=== PATIENT | male | born 1985 | race Caucasian/White ===

== ENCOUNTER 2024-07-31 18:36 | Inpatient (IN) | payer OTHER, SELFPAY ==
[2024-07-31 18:39] VITALS: BMI 34.8
[2024-07-31 19:34] VITALS: BP 150/89; PULSE 107; RESP 20; TEMP 37.5; O2SAT 97
[2024-07-31 21:01] LABS: Lactate (Lactic Acid) 1.7 mMol/L (0.4-2.0)
[2024-07-31 21:03] LABS: Base Excess, Venous 6 (-3-3); O2 Saturation, Venous 33 % (96-97); PCO2, Venous 38 mmHg (36-56); PO2, Venous 19 mmHg (15-58); pH, Venous 7.49 (7.33-7.66)
[2024-07-31 21:05] LABS: Basophils % (Auto) 0 % (0-2.5); Eosinophils % (Auto) 0 % (0-10); Hematocrit 44.8 % (41.0-53.0); Hemoglobin 16.1 g/dL (13.5-16.0); Immature Granulocytes % (Auto) 0 % (0-0); Immature Granulocytes Auto 0.07 Thou/mm3 (0.00-0.00); Lymphocytes # (Auto) 0.8 Thou/mm3 (1.0-4.8); Lymphocytes % (Auto) 5 % (10-50); Mean Corpuscular HGB Conc 35.9 g/dl (31.0-37.0); Mean Corpuscular Hemoglobin 32.8 pg (25.0-35.0); Mean Corpuscular Volume 91 fL (80-100); Monocytes % (Auto) 6 % (0-12); Neutrophils # (Auto) 13.8 Thou/mm3 (1.8-7.7); Neutrophils % (Auto) 88 % (37-80); Nucleated Red Blood Cell % 0 /100 WBC (0); Platelet Count 271 Thou/mm3 (140-440); RDW Standard Deviation 39.6 fL (35.1-43.9); Red Blood Count 4.91 Miln/mm3 (4.50-5.90); White Blood Count 15.7 Thou/mm3 (3.8-10.6)
[2024-07-31 21:30] LABS: Alanine Aminotransferase 21 U/L (10-49); Albumin, Serum 4.7 gm/dL (3.5-5.0); Albumin/Globulin Ratio 1.4 (1.2-2.2); Alkaline Phosphatase 73 U/L (46-116); Anion Gap 10 (7-16); Aspartate Amino Transferase 17 U/L (0-34); BUN/Creatinine Ratio 11 Ratio (12-20); Bilirubin,Total 0.7 mg/dL (0.3-1.2); Blood Urea Nitrogen 12 mg/dL (9-23); Calcium 10.5 mg/dL (8.3-10.6); Calcium (Corrected) 10.5 mg/dL (8.5-10.1); Carbon Dioxide 27.4 mMol/L (20.0-31.0); Chloride 99 mMol/L (98-107); Creatine Kinase 118 U/L (34-171); Creatinine (Component) 1.1 mg/dL (0.6-1.3); Estimated Creatinine Clearance 114.3 mL/min (>60); Globulin 3.4 gm/dL (2.3-3.5); Glucose 117 mg/dL (74-106); Lipase 37 U/L (12-53); Osmolality,Calculated 272 (275-295); Potassium 4.6 mMol/L (3.4-5.1); Procalcitonin 0.31 ng/ml (0.0-0.49); Sodium 136 mMol/L (136-145); Total Protein 8.1 gm/dL (5.7-8.2); eGFR > 60 See Note
--- NOTE | 2024-07-31 21:32 | XR_ITS ---
Examination: CT abdomen with intravenous contrast CT pelvis with intravenous contrast 2-D coronal reconstructions 2-D sagittal reconstructions Date and time of exam:August 01, 2024 0044 hours INDICATIONS: Bilateral flank pain onset today. CTDI: vol (mGy) 10.5 DLP: (mGycm) 708 Technique: Multiple axial sections of the abdomen and pelvis have been obtained. 64 slice high-resolution scanner used. 3 mm axial sections have been obtained, post intravenous injection 60 cc Isovue 370 2-D sagittal, coronal reconstructions obtained. Low dose protocols were performed. One or more of the following dose reduction techniques were used; automated exposure control, adjustment of the mA and/or KV according to patient size, use of iterative reconstruction technique. Findings: No focal liver or splenic lesions No gallstones No pancreatic mass No renal or ureteral calculi, no hydronephrosis Aorta normal size Significant inflammatory change. Cecal and surrounding tubular structure medial to the cecum No pelvic abscess Urinary bladder is intact IMPRESSION: Findings most consistent with acute appendicitis with localized perforation No pelvic abscess
[2024-07-31 22:05] LABS: Collection Type, Urine Clean Catch
[2024-07-31 22:11] LABS: Bilirubin,Urine Negative (Negative); Blood,Urine Negative (Negative); Clarity,Urine Clear (Clear/Hazy); Color,Urine Yellow (Lt Yel-Yel); Glucose, Urine Negative (Negative); Ketones,Urine 4+ (Negative); Leukocyte Esterase,Urine Negative (Negative); Nitrite,Urine Negative (Negative); Protein,Urine 1+ (Neg - Trace); RBC,Urine 2 /hpf (0-3); Specific Gravity,Urine 1.027 (1.001-1.035); Squamous Epithelial Cell,Urine < 1 /hpf (0-5); Urobilinogen,Urine Negative mg/dL (0.0-1.0); WBC,Urine 1 /hpf (0-5)
[2024-07-31 22:19] LABS: Amphetamine/Methamp Scrn,U Negative (Negative); Barbiturate Screen,Urine Negative (Negative); Benzodiazepines Screen,Urine Negative (Negative); Benzoylecgonine Screen, Ur Negative (Negative); Fentanyl Screen,Urine Negative (Negative); Opiate Screen,Urine Negative (Negative); THC Screen,Urine Negative (Negative)
[2024-07-31] MEDS: ONDANSETRON INJ 2 MG/ML INJ 2 ML 4 MG IV ×2 (22:51→23:50)
[2024-07-31] MEDS: SODIUM CHLORIDE 0.9% 1000 ML 1,000 ML 999 ML IV (22:51)
[2024-07-31] MEDS: MORPHINE SULF INJ 10 MG/ML VIAL 5 MG IVP (22:52)
[2024-07-31] MEDS: DIAZEPAM INJ 5 MG/ML VIAL 2 ML 10 MG IVP (23:40)
[2024-08-01] VITALS (19 sets, daily range): BP systolic 87–140; BP diastolic 42–80; PULSE 65–120; RESP 16–22; TEMP 36.2–39.5; O2SAT 91–100; BMI 35.0
--- NOTE | 2024-08-01 02:14 | PRELIM_ITS ---
CT scan of the abdomen and pelvis with intravenous contrast (axial sections with sagittal and coronal reformats) August 01, 2024 at 0027 hours Clinical History: Abdomen pain. Comparison: No prior study is available for comparison. Findings: Bibasilar dependent atelectasis is present. The liver, gallbladder, pancreas, spleen, kidneys and adrenals are unremarkable. No evidence of bowel obstruction. The appendix is markedly thickened, fluid filled measuring 17 mm in maximum thickness with mural enhancement and marked adjacent fat stranding (axial image 152 - 169/325). There is deformed wall of the mid appendix with a few adjacent small air loculi on (coronal image 69/169, axial image 159/325). There is associated extensive periappendiceal fat stranding and inflammation of the contiguous cecal base and small bowel loops. There is also right pelvic peritoneal thickening with trace free fluid in the pelvis. There are subcentimeter mesenteric or retroperitoneal lymph nodes. The urinary bladder is unremarkable. The osseous structures are unremarkable. Impression: Findings are concerning for acute appendicitis with suspicious contained perforation and small air loculus, contiguous inflammation of the cecal base and a terminal ileum. Recommended clinical correlation. Discussion Details: Results verbally communicated to : Dr. Cedillo at 02:10 AM 08/01/2024 Report Electronically Signed By: Steve Ford 08/01/2024 2:13:43 AM [EST]
--- NOTE | 2024-08-01 02:15 | EDNOTE_ITS ---
ED Abdominal Pain RME/HPI General Chief Complaint: Abdominal Pain Stated complaint: ABD/BACK PAIN, FEVER SINCE LAST NIGHT Time seen by provider: 07/31/24 19:54 Arrival date/time: 07/31/24 18:36 38M with no significant PMH presents to ED with 2 days of lower back pain and fevers/chills. Patient states he recently went on the carnivore diet and has been taking 20k units of vitamin D for 10 days because he read somewhere that it would help his body lose calories. Patient states he hasn't been urinating as much as is worried about his kidneys. Limitations: no limitations Related Data Previous Rx's ?Medication ?Instructions ?Recorded hydrocodone 5 mg-acetaminophen 325 1 tab PO Q6H PRN pa in #10 tabs /16/18 mg tablet ([place]) Allergies Allergy/AdvReac Type Severity Reaction Status Date / Time No Known Allergies Allergy Verified 07/31/24 18:38 Review of Systems Review of Systems Systems Reviewed: All systems reviewed, normal except as documented Constitutional Constitutional: Reports system reviewed and no additional complaints, except as documented, Reports as per HPI, Reports chills, Reports fever(s) and Denies headache(s) ENT Ears, Nose, Mouth, and Throat: Denies disequilibrium and Denies headache(s) Cardiovascular Cardiovascular: Reports system reviewed and no additional complaints, except as documented, Denies chest pain and Denies dyspnea Respiratory Respiratory: Reports system reviewed and no additional complaints, except as documented, Denies cough and Denies dyspnea Gastrointestinal Gastrointestinal: Reports system reviewed and no additional complaints, except as documented, Reports as per HPI, Reports abdominal pain, Reports nausea and Reports vomiting Neurologic Neurologic: Reports system reviewed and no additional complaints, except as documented, Denies confusion, Denies disequilibrium and Denies headache(s) Psychiatric Psychiatric: Denies confusion Past Medical History Past Medical History CARDIAC: Negative Cardiac Disorders or Congestive Heart Failure RESPIRATORY: Negative Chronic Obstructive Pulmonary Disease (COPD) or Asthma GENITOURINARY: Negative Renal Disease ENDOCRINE: Negative Diabetes Mellitus Type 1 or Diabetes Mellitus Type 2 HEMATOLOGIC: Negative Sickle Cell Disease Social History SMOKING STATUS: Former smoker ED Exam General Limitations: Present no limitations General appearance: Present alert and in no apparent distress Head Head exam: Present atraumatic Eye Eye exam: Present normal appearance, PERRL and EOMI ENT ENT exam: Present normal exam, normal oropharynx and mucous membranes moist Neck Neck exam: Present normal inspection, full ROM and trachea midline Chest Chest inspection: Present normal inspection and symmetric chest wall rise Respiratory Respiratory exam: Present normal lung sounds bilaterally Cardiovascular Cardiovascular exam: Present regular rate, normal rhythm and normal heart sounds Abdominal Exam Abdominal exam: Present soft and normal bowel sounds Abdominal tenderness: Present RLQ Extremities Exam Extremities exam: Present full ROM Back Exam Back exam: Present normal inspection and full ROM Neurological Exam Neurological exam: Present alert, oriented X3 and CN II-XII intact Psychiatric Psychiatric exam: Present normal affect and normal mood Skin Skin exam: Present warm, dry, intact and normal color Course Quality Measures none Orders Category Date Time Status Admit to Inpatient Status Routine Admission 08/01/24 03:28 Active Patient Condition Routine Admission 08/01/24 03:27 Ordered Bedside COVID-19 Antigen Test NOW Care 08/01/24 03:47 Active COVID-19 Screening Questionnaire NOW Care 08/01/24 02:[address] Screening NOW Care 07/31/24 21:32 Active Digital Press Operator Q4H START 00 Care 08/01/24 01:52 Active Decision to Admit X1 Care 08/01/24 02:11 Completed Insert IV NOW Care 07/31/24 19:55 Active NPO NOW Care 08/01/24 02:26 Active Notify provider NEEDED Care 08/01/24 03:27 Active Obtain weight daily Care 08/01/24 03:30 Active Consult to General Surgery Stat Cons 08/01/24 02:11 Ordered Consult to General Surgery Stat Cons 08/01/24 03:33 Ordered Diet NPO (NOW) Diet 08/01/24 02:[address] abdomen pelvis w con Stat Exams 07/31/24 21:32 Taken Blood Culture (Lab) Routine Lab 08/01/24 03:33 Received CBC AM DRAW Lab 08/01/24 05:00 Ordered CBC AM DRAW Lab 08/02/24 05:00 Ordered CBC AM DRAW Lab 08/03/24 05:00 Ordered CBC Stat Lab 07/31/24 20:27 Completed CMP [Comprehensive Metabolic Panel] Stat Lab 07/31/24 20:27 Completed Comprehensive Metabolic Panel AM DRAW Lab 08/01/24 05:00 Ordered Comprehensive Metabolic Panel AM DRAW Lab 08/02/24 05:00 Ordered Comprehensive Metabolic Panel AM DRAW Lab 08/03/24 05:00 Ordered Creatine Kinase Stat Lab 07/31/24 20:27 Completed Drug Screen,Urine Stat Lab 07/31/24 21:39 Completed Lactate (Lactic Acid) Stat Lab 07/31/24 20:27 Completed Lipase Stat Lab 07/31/24 20:27 Completed Lipid Panel AM DRAW Lab 08/01/24 05:00 Ordered Magnesium AM DRAW Lab 08/01/24 05:00 Ordered Magnesium AM DRAW Lab 08/02/24 05:00 Ordered Magnesium AM DRAW Lab 08/03/24 05:00 Ordered Phosphorous AM DRAW Lab 08/02/24 05:00 Ordered Phosphorous AM DRAW Lab 08/03/24 05:00 Ordered Phosphorous AM DRAW Lab 08/04/24 05:00 Ordered Procalcitonin Stat Lab 07/31/24 20:27 Completed Thyroid Stimulating Hormone AM DRAW Lab 08/01/24 05:00 Ordered UA [Urinalysis] Stat Lab 07/31/24 21:39 Completed Urinalysis Routine Lab 08/01/24 03:32 Ordered Urine Culture Routine Lab 08/01/24 03:32 Ordered VBG [Venous Blood Gas] Stat Lab 07/31/24 20:27 Completed Acetaminophen Ivpb [Ofirmev Inj] Med 08/01/24 01:47 Discontinued 1,000 mg in 100 ml IV X1 Acetaminophen Tab [Tylenol Tab] Med 08/01/24 03:26 Active 650 mg PO Q6H PRN Diazepam Inj [Valium Inj] Med 07/31/24 23:06 Discontinued 10 mg IVP X1 ONE HYDROcodone*/APAP 5/325 [[place] 5/325] Med 08/01/24 03:26 Active 1 tab PO Q4HR PRN Ketorolac Inj [Toradol Inj] Med 08/01/24 01:45 Discontinued 30 mg IVP X1 ONE Morphine Inj Med 08/01/24 03:26 Active 2 mg IVP Q4H PRN Morphine Inj Med 07/31/24 21:14 Discontinued 5 mg IVP X1 ONE Ondansetron Inj [Zofran Inj] Med 07/31/24 21:14 Discontinued 4 mg IV X1 ONE Ondansetron Inj [Zofran Inj] Med 07/31/24 23:43 Discontinued 4 mg IV X1 ONE Ondansetron Inj [Zofran Inj] Med 08/01/24 01:47 Discontinued 4 mg IV X1 ONE Piper/Tazo 3.375 gm Premix [Zosyn] Med 08/01/24 08:00 Pending 3.375 gm in 50 ml IV Q6H Piper/Tazo 3.375 gm Premix [Zosyn] Med 08/01/24 01:44 Discontinued 3.375 gm in 50 ml IV X1 Sodium Chloride 0.9% 1000 ml [Ns] 1,000 ml Med 07/31/24 22:17 Discontinued IV 999 mls/hr Sodium Chloride 0.9% 1000 ml [Ns] 1,000 ml Med 08/01/24 01:45 Discontinued IV 999 mls/hr Code Status Routine Oth 08/01/24 03:26 Ordered Oxygen Delivery NEEDED RT 08/01/24 03:30 Active Vital Signs Vital signs: Vital Signs Temperature 99.5 F 07/31/24 19:34 Pulse Rate 107 H 07/31/24 19:34 Respiratory Rate 20 07/31/24 19:34 Blood Pressure 150/89 H 07/31/24 19:34 Pulse Oximetry (%) 97 07/31/24 19:34 Oxygen Delivery Method Room Air 07/31/24 19:34 O2 at 97% on RA and WNLs Abdominal Pain MDM MDM Narrative MDM Narrative:: 38M with no significant PMH presents to ED with 2 days of lower back pain and fevers/chills. Patient states he recently went on the carnivore diet and has been taking 20k units of vitamin D for 10 days because he read somewhere that it would help his body lose calories. Patient states he hasn't been urinating as much as is worried about his kidneys. Physical exam reveals RLQ tenderness and no CVA tenderness. Patient was initially afebrile, calm, and alert. Labs show moderate leukocytosis of 15k. CMP unremarkable. Procal/lactate normal. UA dehydration, but clean UA. CT reveals ruptured appy. Sepsis alert called when recheck of VS showed fever of 103. ABX and additional fluids given. Spoke to Dr. Domingo, gen surg, who states he will consult and resident of Dr. Jasso, IM, who states he will admit the patient. Patient data External records reviewed:: [facility] previous records Clinical information provided by:: patient Social determinants that could affect healthcare access:: none Patient has the following chronic illnesses:: none How is presenting disease/condition affected by chronic disease/condition?: no chronic disease Evaluation data The following diagnostics were reviewed and interpreted by me:: lab results and radiology exam(s) Lab and/or radiology exams considered but not ordered:: ordered Interpretation Summary: above Medications / Prescriptions Medications or Prescriptions considered but not ordered:: ordered Medication administrations:: Medication Administration History Acetaminophen (Acetaminophen 325 Mg Tablet) 650 mg PO Q6H PRN PRN Reason: PAIN SCALE 1-3 (mild Stop: 08/31/24 03:25 Hydrocodone Bitart/Acetaminophen (Hydrocodone/Apap 5/325 Tablet) 1 tab PO Q4HR PRN PRN Reason: PAIN SCALE 4-6 (Moderate Stop: 08/06/24 03:25 Piperacillin/Tazobactam/Dextrose (Zosyn) 3.375 gm in 50 mls @ 100 mls/hr IV Q6H SANTOS Stop: 08/08/24 07:59 Morphine Sulfate (Morphine Sulf Inj 10 Mg/Ml Vial) 2 mg IVP Q4H PRN PRN Reason: PAIN SCALE 7-10 (Severe Stop: 08/06/24 03:25 Discontinued Medications Diazepam (Diazepam Inj 5 Mg/Ml Vial 2 Ml) 10 mg IVP X1 ONE Stop: 07/31/24 23:07 Last Admin: 07/31/24 23:40 Dose: 10 mg Documented By: EE Sodium Chloride (Ns) 1,000 mls @ 999 mls/hr IV .Q1H1M ONE Stop: 07/31/24 23:17 Last Infusion: 08/01/24 02:11 Dose: Infused Documented By: Admin: 07/31/24 22:51 Dose: 999 mls/hr Documented By: EE Piperacillin/Tazobactam/Dextrose (Zosyn) 3.375 gm in 50 mls @ 100 mls/hr IV X1 ONE Stop: 08/01/24 02:13 Last Infusion: 08/01/24 03:14 Dose: Infused Documented By: Admin: 08/01/24 02:23 Dose: 100 mls/hr Documented By: EE Sodium Chloride (Ns) 1,000 mls @ 999 mls/hr IV .Q1H1M ONE Stop: 08/01/24 02:45 Last Admin: 08/01/24 02:25 Dose: 999 mls/hr Documented By: EE Acetaminophen (Ofirmev Inj) 1,000 mg in 100 mls @ 250 mls/hr IV X1 ONE Stop: 08/01/24 02:10 Last Infusion: 08/01/24 03:00 Dose: Infused Documented By: Admin: 08/01/24 02:23 Dose: 250 mls/hr Documented By: EE Ketorolac Tromethamine (Ketorolac Inj 30 Mg/Ml Vial) 30 mg IVP X1 ONE Stop: 08/01/24 01:46 Last Admin: 08/01/24 02:23 Dose: 30 mg Documented By: EE Morphine Sulfate (Morphine Sulf Inj 10 Mg/Ml Vial) 5 mg IVP X1 ONE Stop: 07/31/24 21:15 Last Admin: 07/31/24 22:52 Dose: 5 mg Documented By: EE Ondansetron HCl (Ondansetron Inj 2 Mg/Ml Inj 2 Ml) 4 mg IV X1 ONE; Protocol Stop: 07/31/24 21:15 Last Admin: 07/31/24 22:51 Dose: 4 mg Documented By: EE Ondansetron HCl (Ondansetron Inj 2 Mg/Ml Inj 2 Ml) 4 mg IV X1 ONE; Protocol Stop: 07/31/24 23:44 Last Admin: 07/31/24 23:50 Dose: 4 mg Documented By: EE Ondansetron HCl (Ondansetron Inj 2 Mg/Ml Inj 2 Ml) 4 mg IV X1 ONE; Protocol Stop: 08/01/24 01:48 Last Admin: 08/01/24 02:22 Dose: 4 mg Documented By: SAMUEL above Consultations Consultation(s) initiated? (list below): Yes Diagnosis Differential diagnosis abdominal pain: abdominal pain, acute appendicitis, calculus of kidney, constipation, diverticulitis, gastroenteritis, pancreatitis and small bowel obstruction Most likely diagnosis given after review of the tests above:: appy Admission Indicated Admission indicated?: indicated Admission Request Was there a request for admission?: Yes Admission Attestation Admission request attestation: Discussed case with [resident of Dr. Meyer] from Hospitalist service regarding admission. Discussed patients ED course, exam findings, labs, and radiology results. The Hospitalist [agrees] to accept the patient for admission. Disposition Plan Disposition Plan: Admit Discharge Plan Plan Patient Disposition: Admit Acute Care w/in Hospital Prescriptions/Referrals Prescriptions/Med Rec: No Action hydrocodone-acetaminophen [[place]] 5-325 mg tablet 1 tab PO Q6H MDD 4 tabs PRN (Reason: pain) Qty: 10 0RF Referrals: No Primary/Family,Physician [Primary Care Provider] - In 1 week Problem List Clinical Impression: Acute appendicitis with perforation and localized peritonitis Patient/Caregiver Discharge Instructions Print Language: Colombian Stand Alone Forms: [facility]ette Award Info., Patient Portal Info Letter
[2024-08-01] MEDS: ONDANSETRON INJ 2 MG/ML INJ 2 ML 4 MG IV ×2 (02:22→17:12)
[2024-08-01] MEDS: PIPER/TAZO 3.375 GM PREMIX 3.375 GM/50 ML BAG IV ×3 (02:23→22:42)
[2024-08-01] MEDS: KETOROLAC INJ 30 MG/ML VIAL IVP (02:23)
[2024-08-01] MEDS: ACETAMINOPHEN IVPB 1,000 MG/100 ML VIAL 250 MG IV ×3 (02:23→23:47)
[2024-08-01] MEDS: SODIUM CHLORIDE 0.9% 1000 ML 1,000 ML 999 ML IV (02:25)
--- NOTE | 2024-08-01 04:41 | ESHP_ITS ---
<Statement entered by Miriam Meyer MD - 08/03/24 05:05> I reviewed above note and agree with findings and plans. I have also personally examined the patient with medicine team and went over assessment and plan with medical team including general internist and physician leader and resident physician. Documentation for date of: 08/01/24 HPI History of Present Illness History of present illness: The patient is a 38-year-old male with no significant past medical history presented to ED with chief complaint of right lower abdominal pain for 1 days. He reported his pain was radiating to lower back, and was associated with fever and nausea. He reported 1 episode of vomiting when he presented to ED. He reported that he has been trying keto diet recently, and got 2 days ago, and went for dinner, and developed the abdominal pain after that. He denied any lightheadedness, chest pain, SOB, any urinary symptoms or leg swelling. He also admitted having constipation for a long time. In the ED his vitals were significant for blood pressure 150/89, pulse 107, temperature 99.5, saturating 97% on room air. Labs are significant for white count 17.3, corrected calcium 10.5. Urine pH 8.0, protein 1+, ketones 4+, U-Tox negative, abdomen/pelvis CT revealed ruptured appendicitis as per preliminary read. 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 The patient also received 10 Mg IV diazepam and morphine sulfate 5 Mg IV x 1 and was admitted to [facility] telemetry unit for further management of ruptured appendicitis. Review of Systems Review of Systems Systems Reviewed: All systems reviewed, normal except as documented Exam Vital Signs Temp Pulse Resp BP Pulse Ox O2 Del Method 99.2 F 84 19 140/65 H 99 Room Air 08/01/24 04:25 08/01/24 04:25 08/01/24 04:25 08/01/24 04:25 08/01/24 04:25 08/01/24 04:25 Narrative Exam General: No acute distress, Alert and Oriented x 3 HEENT: Moist mucous membranes, oropharynx clear Neck: Supple, No masses, No JVD CVS: S1S2 Regular rate and rhythm, No murmurs, rubs or gallops Lungs: Clear to auscultation with no accessory use, no wheeze no rhonchi Abd: Soft, tenderness throughout the abdomen, +BS, no organomegaly Ext: No edema, warm and well perfused Skin: No rash Psych: Somnolent Results: Labs 08/01/24 04:36 07/31/24 20:27 Labs: Short CBC 07/31/24 Range/Units 20:27 WBC 15.7 H (3.8-10.6) Thou/mm3 Hgb 16.1 H (13.5-16.0) g/dL Hct 44.8 (41.0-53.0) % Plt Count 271 (140-440) Thou/mm3 BMP 07/31/24 20:27 Sodium 136 Potassium 4.6 Chloride 99 Carbon Dioxide 27.4 BUN 12 Creatinine 1.1 Glucose 117 H Calcium 10.5 Cardiac Enzymes 07/31/24 Range/Units 20:27 Total Creatine Kinase 118 (34-171) U/L Liver Function 07/31/24 Range/Units 20:27 Total Bilirubin 0.7 (0.3-1.2) mg/dL AST 17 (0-34) U/L ALT 21 (10-49) U/L Alkaline Phosphatase 73 (46-116) U/L Albumin 4.7 (3.5-5.0) gm/dL Urine 07/31/24 Range/Units 21:39 Urine Color Yellow (Lt Yel-Yel) Urine Clarity Clear (Clear/Hazy) Urine pH 8.0 H (5.0-7.0) Ur Specific [place] 1.027 (1.001-1.035) Urine Protein 1+ A (Neg - Trace) Urine Glucose (UA) Negative (Negative) ABG Interpretation ABG results: 07/31/24 20:27 VBG pH 7.49 VBG pCO2 38 VBG pO2 19 VBG Base Excess 6 H Quality Measures Quality Measures none Medications Home Medications and Allergies Allergies Allergy/AdvReac Type Severity Reaction Status Date / Time No Known Allergies Allergy Verified 07/31/24 18:38 Visit Medications Acetaminophen (Acetaminophen 325 Mg Tablet) 650 mg PO Q6H PRN PRN Reason: PAIN SCALE 1-3 (mild Stop: 08/31/24 03:25 Hydrocodone Bitart/Acetaminophen (Hydrocodone/Apap 5/325 Tablet) 1 tab PO Q4HR PRN PRN Reason: PAIN SCALE 4-6 (Moderate Stop: 08/06/24 03:25 Piperacillin/Tazobactam/Dextrose (Zosyn) 3.375 gm in 50 mls @ 100 mls/hr IV Q6H SANTOS Stop: 08/08/24 07:59 Morphine Sulfate (Morphine Sulf Inj 10 Mg/Ml Vial) 2 mg IVP Q4H PRN PRN Reason: PAIN SCALE 7-10 (Severe Stop: 08/06/24 03:25 Discontinued Medications Diazepam (Diazepam Inj 5 Mg/Ml Vial 2 Ml) 10 mg IVP X1 ONE Stop: 07/31/24 23:07 Last Admin: 07/31/24 23:40 Dose: 10 mg Sodium Chloride (Ns) 1,000 mls @ 999 mls/hr IV .Q1H1M ONE Stop: 07/31/24 23:17 Last Infusion: 08/01/24 02:11 Dose: Infused Piperacillin/Tazobactam/Dextrose (Zosyn) 3.375 gm in 50 mls @ 100 mls/hr IV X1 ONE Stop: 08/01/24 02:13 Last Infusion: 08/01/24 03:14 Dose: Infused Sodium Chloride (Ns) 1,000 mls @ 999 mls/hr IV .Q1H1M ONE Stop: 08/01/24 02:45 Last Admin: 08/01/24 02:25 Dose: 999 mls/hr Acetaminophen (Ofirmev Inj) 1,000 mg in 100 mls @ 250 mls/hr IV X1 ONE Stop: 08/01/24 02:10 Last Infusion: 08/01/24 03:00 Dose: Infused Ketorolac Tromethamine (Ketorolac Inj 30 Mg/Ml Vial) 30 mg IVP X1 ONE Stop: 08/01/24 01:46 Last Admin: 08/01/24 02:23 Dose: 30 mg Morphine Sulfate (Morphine Sulf Inj 10 Mg/Ml Vial) 5 mg IVP X1 ONE Stop: 07/31/24 21:15 Last Admin: 07/31/24 22:52 Dose: 5 mg Ondansetron HCl (Ondansetron Inj 2 Mg/Ml Inj 2 Ml) 4 mg IV X1 ONE; Protocol Stop: 07/31/24 21:15 Last Admin: 07/31/24 22:51 Dose: 4 mg Ondansetron HCl (Ondansetron Inj 2 Mg/Ml Inj 2 Ml) 4 mg IV X1 ONE; Protocol Stop: 07/31/24 23:44 Last Admin: 07/31/24 23:50 Dose: 4 mg Ondansetron HCl (Ondansetron Inj 2 Mg/Ml Inj 2 Ml) 4 mg IV X1 ONE; Protocol Stop: 08/01/24 01:48 Last Admin: 08/01/24 02:22 Dose: 4 mg Assessment & Plan Plan The patient is a 38-year-old male with no significant past medical history presented to ED with chief complaint of right lower abdominal pain for 1 days. The patient also received 10 Mg IV diazepam and morphine sulfate 5 Mg IV x 1 and was admitted to med telemetry unit for further management of ruptured appendicitis. #Ruptured appendicitis #SIRS 2/4 positive The patient presented with right lower abdominal pain that radiated towards right flank and back, associated with fever and nausea Has history of constipation CT abdomen/pelvis revealed ruptured appendicitis as per preliminary read Pulse rate 107, white count 17.3 Received 2 L of IV bolus fluid in the ED Received 3 dose of Zofran and Zosyn in the ED -Continue with IV Zosyn 3.375 Mg every 8 hourly -Dr Domingo consulted, will proceed with surgery this morning -N.p.o. -Pain management -Blood and urine culture ordered -Daily a.m. labs for CBC, CMP and electrolytes #Mild hypercalcemia Likely secondary to dehydration -Received 2 L of IV bolus normal saline -Daily AM labs were calcium level Health maintenance: Dispo: Patient admitted to med telemetry unit for further management of ruptured appendicitis Diet: N.p.o. DVT prophylaxis: SCDs CODE STATUS: Full code The patient's management plan was discussed with my attending physician MD Deonte Carmona MD, PGY2
[2024-08-01 04:55] LABS: Basophils % (Auto) 0 % (0-2.5); Eosinophils % (Auto) 0 % (0-10); Hematocrit 38.9 % (41.0-53.0); Hemoglobin 13.7 g/dL (13.5-16.0); Immature Granulocytes % (Auto) 1 % (0-0); Immature Granulocytes Auto 0.11 Thou/mm3 (0.00-0.00); Lymphocytes # (Auto) 0.7 Thou/mm3 (1.0-4.8); Lymphocytes % (Auto) 4 % (10-50); Mean Corpuscular HGB Conc 35.2 g/dl (31.0-37.0); Mean Corpuscular Hemoglobin 32.6 pg (25.0-35.0); Mean Corpuscular Volume 93 fL (80-100); Monocytes # (Auto) 1.4 Thou/mm3 (0.0-0.8); Monocytes % (Auto) 8 % (0-12); Neutrophils % (Auto) 87 % (37-80); Nucleated Red Blood Cell % 0 /100 WBC (0); Platelet Count 237 Thou/mm3 (140-440); RDW Standard Deviation 39.4 fL (35.1-43.9); White Blood Count 17.3 Thou/mm3 (3.8-10.6)
[2024-08-01 05:57] LABS: Alanine Aminotransferase 17 U/L (10-49); Albumin, Serum 3.7 gm/dL (3.5-5.0); Albumin/Globulin Ratio 1.4 (1.2-2.2); Alkaline Phosphatase 58 U/L (46-116); Anion Gap 7 (7-16); Aspartate Amino Transferase 12 U/L (0-34); BUN/Creatinine Ratio 8 Ratio (12-20); Bilirubin,Total 0.5 mg/dL (0.3-1.2); Blood Urea Nitrogen 11 mg/dL (9-23); Calcium 8.7 mg/dL (8.3-10.6); Calcium (Corrected) 8.9 mg/dL (8.5-10.1); Carbon Dioxide 25.8 mMol/L (20.0-31.0); Cardiac Risk Estimate 3.4 RATIO (4.0-6.7); Chloride 102 mMol/L (98-107); Cholesterol 142 mg/dL (132-200); Creatinine (Component) 1.3 mg/dL (0.6-1.3); Estimated Creatinine Clearance 96.7 mL/min (>60); Globulin 2.6 gm/dL (2.3-3.5); Glucose 161 mg/dL (74-106); HDL Cholesterol 42 mg/dL (40-60); LDL Cholesterol,Calculated 84 mg/dL (0-130); Magnesium 1.9 mg/dL (1.6-2.6); Osmolality,Calculated 272 (275-295); Potassium 4.3 mMol/L (3.4-5.1); Sodium 135 mMol/L (136-145); Thyroid Stimulating Hormone 0.26 uIU/mL (0.55-4.78); Total Protein 6.3 gm/dL (5.7-8.2); Triglycerides 80 mg/dL (30-150); eGFR > 60 See Note
[2024-08-01] MEDS: RINGERS LACTATED 1000 ML 1,000 ML 75 ML IV (11:13)
--- NOTE | 2024-08-01 11:54 | ESCONSULT_ITS ---
HPI Consult details Consult date: 08/01/24 Reason for consultation narrative: Abdominal pain with nausea History of present illness: 38-year-old male without significant past medical history presented to the emergency department with worsening abdominal pain. His pain started about 3 days ago around periumbilical region. The pain was initially intermittent. Since yesterday his pain has become persistent, progressively worse and local ized over right lower quadrant. He has had nausea and chills, but denies vomiting, fever, dysuria, diarrhea or constipation. He denies having similar symptoms in the past with no recent history of trauma. CT scan was obtained that revealed findings suspicious for appendicitis with localized perforation. Review of Systems Constitutional Constitutional: Reports chills, Denies fever(s) and Denies headache(s) ENT Ears, Nose, Mouth, and Throat: Denies disequilibrium and Denies headache(s) Cardiovascular Cardiovascular: Denies chest pain Respiratory Respiratory: Denies cough Gastrointestinal Gastrointestinal: Reports abdominal pain, Reports nausea and Denies vomiting Genitourinary Genitourinary: Denies difficulty urinating Neurologic Neurologic: Reports system reviewed and no additional complaints, except as do cumented, Denies confusion, Denies disequilibrium and Denies headache(s) Psychiatric Psychiatric: Denies confusion Hematologic/Lymphatic Hematologic/Lymphatic: Denies easy bleeding and Denies easy bruising Past Medical History Surgical History OTHER SURGICAL HX: No surgeries in the past Social History SMOKING STATUS: Former smoker SUBSTANCE USE: does not use (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) ALCOHOL: Current Meds Home Medications and Allergies Allergies Allergy/AdvReac Type Severity Reaction Status Date / Time No Known Allergies Allergy Verified 07/31/24 18:38 Exam Vital Signs Temp Pulse Resp BP Pulse Ox O2 Del Method 97.4 F 72 18 105/69 96 Room Air 08/01/24 08:00 08/01/24 08:00 08/01/24 08:00 08/01/24 08:00 08/01/24 08:00 08/01/24 08:00 Constitutional Constitutional: no acute distress Routine Abdominal Exam Abdominal: Present soft, normoactive bowel sounds and tenderness (Right lower quadrant tenderness to palpation with guarding, no rebound tenderness or peritonitis at this time); Absent distended Results Results: Laboratory Laboratory results: results reviewed Results: Imaging Imaging narrative: CT scan of abdomen and pelvis images reviewed, radiologist interpretation noted Assessment & Plan Problem List (1) Acute appendicitis with perforation and localized peritonitis: Status: Acute Plan Will take patient to operating room for laparoscopic possible open appendectomy. Risks include but not limited to infection, bleeding, injury to bowel, bladder, surround neurovascular structures, abdominal sepsis and or abdominal abscess, need for further procedure and or operation discussed with the patient. Benefits and alternatives explained to him, all his questions answered, he agreed and consented to proceed with the operation. (1) Acute appendicitis with perforation and localized peritonitis Qualifiers: Appendicitis gangrene presence: unspecified whether gangrene present Appendicitis abscess presence: without abscess Qualified Code(s): K35.32 - Acute appendicitis with perforation, localized peritonitis, and gangrene, without abscess
--- NOTE | 2024-08-01 12:32 | PC.NURSE ---
at this time, patient transfer to OR, via hospital bed, accompanied by Agusto TRAN and patient's , Kourtney. Patient alert and oriented x3.
--- NOTE | 2024-08-01 14:04 | ESPR_ITS ---
Documentation for date of: 08/01/24 Subjective Subjective Interval history: No overnight events. Patient seen examined at bedside, resting comfortably. Patient endorses abdominal pain, well-controlled without pain medication. Patient denies fever, chills, nausea, vomiting, shortness of breath. Patient to receive laparoscopic appendectomy today. Continue IV antibiotics. Gentle IVF initiated. Exam Vital Signs Temp Pulse Resp BP Pulse Ox O2 Del Method 98.6 F 93 18 125/80 100 Room Air 08/01/24 12:00 08/01/24 12:08/01/24 12:08/01/24 12:08/01/24 12:08/01/24 12:00 Narrative Exam PE: Gen: Well-developed and well-nourished. HEENT: NCAT, PERRLA, EOMI, MMM, anicteric conjunctivae. CVS: normal S1 and S2. RRR. No M/R/G. Resp: CTA B/L. No rhonchi, rales, crackles or wheezing. Abd: Diffuse abdominal tenderness, worse in right lower quadrant. MSK: Good ROM in BUE & BLE. No edema or rash. Neuro: CN II-XII grossly intact. Strength 5/5 in BUE & BLE. Alert and oriented x3. Psych: appropriate mood and affect. Objective Labs 08/02/24 05:59 08/02/24 05:59 Labs: Laboratory Results - last 24 hr 07/31/24 07/31/24 08/01/24 20:27 21:39 04:36 WBC 15.7 H 17.3 H RBC 4.91 4.20 L Hgb 16.1 H 13.7 D Hct 44.8 38.9 L MCV 91 93 MCH 32.8 32.6 MCHC 35.9 35.2 RDW Std Deviation 39.6 39.4 Plt Count 271 237 D Neut % (Auto) 88 H 87 H Lymph % (Auto) 5 L 4 L [place] % (Auto) 6 8 Eos % (Auto) 0 0 Baso % (Auto) 0 0 Neut # (Auto) 13.8 H 15.0 H Lymph # (Auto) 0.8 L 0.7 L [place] # (Auto) 1.0 H 1.4 H Eos # (Auto) 0.0 0.0 Baso # (Auto) 0.0 0.0 Immature Gran # (Auto) 0.07 H 0.11 H Absolute Nucleated RBC 0.00 0.00 Immature Gran % 0 1 H Nucleated RBC % 0 0 VBG pH 7.49 VBG pCO2 38 VBG pO2 19 VBG O2 Sat ([place]) 33 L VBG Base Excess 6 H Sodium 136 135 L Potassium 4.6 4.3 Chloride 99 102 Carbon Dioxide 27.4 25.8 Anion Gap 10 7 BUN 12 11 Creatinine 1.1 1.3 Estim Creat Clear Calc 114.3 96.7 eGFR > 60 > 60 BUN/Creatinine Ratio 11 L 8 L Glucose 117 H 161 H Calculated Osmolality 272 L 272 L Lactic Acid 1.7 Calcium 10.5 8.7 D Corrected Calcium 10.5 H 8.9 D Magnesium 1.9 Total Bilirubin 0.7 0.5 AST 17 12 ALT 21 17 Alkaline Phosphatase 73 58 D Total Creatine Kinase 118 Total Protein 8.1 6.3 Albumin 4.7 3.7 D Globulin 3.4 2.6 Albumin/Globulin Ratio 1.4 1.4 Triglycerides 80 Cholesterol 142 LDL Cholesterol, Calc 84 HDL Cholesterol 42 Cholesterol/HDL Ratio 3.4 L Lipase 37 Procalcitonin 0.31 TSH 0.26 L Ur Collection Type Clean Catch Urine Color Yellow Urine Clarity Clear Urine pH 8.0 H Ur Specific [place] 1.027 Urine Protein 1+ A Urine Glucose (UA) Negative Urine Ketones 4+ A Urine Blood Negative Urine Nitrite Negative Urine Bilirubin Negative Urine Urobilinogen (Auto) Negative Ur Leukocyte Esterase Negative Urine RBC 2 Urine WBC 1 Ur Squamous Epith Cells < 1 Urine Bacteria None Urine Opiates Screen Negative Urine Fentanyl Screen Negative Ur Barbiturates Screen Negative U Amphetamin/Meth Scrn Negative U Benzodiazepines Scrn Negative U Cocaine Metab Screen Negative U Marijuana (THC) Screen Negative ABG Interpretation ABG results: 07/31/24 20:27 VBG pH 7.49 VBG pCO2 38 VBG pO2 19 VBG Base Excess 6 H Quality Measures Quality Measures VTE prophylaxis Assessment & Plan Assessment Current Active Medications: Generic Name Dose Route Start Last Admin Trade Name Freq PRN Reason Stop Dose Admin Acetaminophen 650 mg 08/01/24 03:26 Acetaminophen 325 Mg Tablet PO 08/31/24 03:25 Q6H PRN PAIN SCALE 1-3 (mild Hydrocodone Bitart/Acetaminophen 1 tab 08/01/24 03:26 Hydrocodone/Apap 5/325 Tablet PO 08/06/24 03:25 Q4HR PRN PAIN SCALE 4-6 (Moderate Fentanyl Citrate 25 mcg 08/01/24 13:06 Fentanyl Cit Inj 50 Mcg/Ml Amp 2ml IV 08/01/24 15:06 Q5M PRN PAIN SCALE 1-3 (mild Hydromorphone HCl 0.4 mg 08/01/24 13:06 Hydromorphone Inj 2 Mg/Ml Vial IV 08/01/24 15:06 Q5M PRN PAIN SCALE 7-10 (Severe Piperacillin/Tazobactam/Dextrose 3.375 gm in 50 mls @ 12.5 mls/hr 08/01/24 14:00 Zosyn IV 08/08/24 13:59 Q8HR SANTOS Protocol Lactated Ringer's 1,000 mls @ 75 mls/hr 08/01/24 10:33 08/01/24 11:13 Lactated Ringers IV 08/01/24 23:52 75 mls/hr .[id number] ONE Administration Acetaminophen 1,000 mg in 100 mls @ 250 mls/hr 08/01/24 13:15 Ofirmev Inj IV 08/02/24 07:38 Q6H SANTOS Morphine Sulfate 2 mg 08/01/24 03:26 Morphine Sulf Inj 10 Mg/Ml Vial IVP 08/06/24 03:25 Q4H PRN PAIN SCALE 7-10 (Severe Morphine Sulfate 3 mg 08/01/24 13:06 Morphine Sulf Inj 10 Mg/Ml Vial IV 08/01/24 15:06 Q5M PRN PAIN SCALE 4-6 (Moderate Plan 38-year-old male with no significant past medical history presented to ED with chief complaint of right lower abdominal pain for 1 days. The patient also received 10 Mg IV diazepam and morphine sulfate 5 Mg IV x 1 and was admitted to [facility] telemetry unit for further management of ruptured appendicitis. #Ruptured appendicitis The patient presented with right lower abdominal pain that radiated towards right flank and back, associated with fever and nausea. Has history of constipation. Patient states that abdominal pain for approximately 1 week, became significantly worse prompting ED visit. CT abdomen/pelvis revealed ruptured appendicitis as per preliminary read. Pulse rate 107, white count 17.3. Received 2 L of IV bolus fluid in the ED. Received 3 dose of Zofran and Zosyn in the ED. -Continue with IV Zosyn 3.375 Mg every 8 hourly -Dr Domingo consulted, will proceed with surgery today -N.p.o. -Pain management -Blood and urine culture ordered #Mild hypercalcemia Likely secondary to dehydration -Received 2 L of IV bolus normal saline -Monitor calcium level daily Lines: Peripheral IV Diet: N.p.o. DVT prophylaxis: SCDs CODE STATUS: Full code Plan of care discussed with attending Dr. Jay. Zi Barrios MD PGY?1 Attending Provider Attestation/Addendum I have examined the patient, reviewed labs and imaging findings, discussed the case with the resident(s), and reviewed entered orders. I agree with the plan of care as outlined in this note, with these additional summaries/recommendations: Patient seen at bedside. Patient was admitted overnight for ruptured appendicitis. CT of abdomen and pelvis showed acute appendicitis with localized perforation. No pelvic abscess. Patient receiving IV Zosyn and general surgery consulted. Patient will go to the operating room today and we will follow-up postoperatively. Continue pain management and will resume diet when able. Patient updated on the plan and in agreement. Repeat hematology and chemistry panel in AM. Dr. Pierre MD
--- NOTE | 2024-08-01 14:10 | ESOP_ITS ---
Date of Procedure 08/01/24 Pre Op Diagnosis Perforated appendicitis Post Op Diagnosis Perforated and gangrenous appendicitis with localized peritonitis and abscess Procedure Laparoscopic appendectomy with abdominal washout Findings Perforated and gangrenous appendix with localized peritonitis and localized abscess Procedure Description Patient was brought into the operating room in supine position. After administration of general endotracheal anesthesia, abdomen was prepped and draped in standard surgical manner. A Veress needle was inserted through the umbilicus and pneumoperitoneum was obtained up to 15 mmHg. The Veress needle was removed and a 5 mm umbilical incision was made. A 5 mm trocar was placed and laparoscopic camera was inserted. Under direct visualization a laparoscopic camera a 5 mm trocar placed in suprapubic region and a 10 mm trocar placed in left lower quadrant. The abdomen was inspected, the cecum was identified. There was significant amount of inflammatory reaction around the cecum and right lower quadrant. There was small amount of localized abscess near the base of the appendix. The purulent fluid was suctioned and abscess cavity was washed and irrigated. The appendix was identified and noted to be perforated and gangrenous in appearance. A window was created between the appendix and meso appendix and the appendix was divided near the appendix and cecal junction with blue Endo TERRA stapling device. The mesoappendix was divided with estrada Endo TERRA stapling device. The appendix was placed inside an Endo Catch and removed from the abdomen utilizing left lower quadrant trocar site. Abdomen and pelvis copiously and thoroughly washed and irrigated, all the fluids were suctioned and the suctioned fluid returned clear. Hemostasis was adequate and satisfactory, staple lines were intact without bleeding or any leakage. Left lower quadrant trocar sites fascial defect was closed with 0 Vicryl using Endo closure device. Instruments and trocars removed, pneumoperitoneum was evacuated and the incisions closed with 4-0 Monocryl subcuticular fashion. Instruments, needles and sponge counts were reported to be correct ??2. Patient tolerated the procedure well, was extubated, breathing spontaneously and without difficulty and was transferred to postanesthesia care in stable condition. Anesthesia GETA and local Pathology / specimen Other (Appendix) Estimated Blood Loss 25 Condition Stable Disposition PACU Surgeon Seymour Domingo MD Surgical Staff Operation Date: 08/01/24 12:45 Case Staff Anesthesiologist: Elmer Cook RN First Assistant: Arpita Mora
--- NOTE | 2024-08-01 14:18 | SUR.PHASEI ---
1402 To PACU eyes closed resting comfortably, no s/s of distress noted continue to monitor pt vital signs and status. 1410 Awake able to lift head off of pillow, following simple commands continue to monitor pt vital signs and status.
[2024-08-01] MEDS: fentaNYL CIT INJ 50 mCg/ML AMP 2ML 25 MCG IV (14:30)
--- NOTE | 2024-08-01 15:04 | PC.NURSE ---
received report from [place] BILL.
--- NOTE | 2024-08-01 15:21 | SUR.PHASEI ---
1455 Transfer to room 365 in stable condition, no complaints, no s/s of distress noted, no change to abdomen dressings.
[2024-08-01] MEDS: KCL 20 mEq/L in D5-1/2NS 20 MEQ/1,000 ML BAG 100 MEQ IV (17:00)
--- NOTE | 2024-08-01 20:17 | PC.NURSE ---
per MD Tripp PO meds are ok to give while patient is NPO.
--- NOTE | 2024-08-01 20:26 | PC.NURSE ---
Patient is complaining of bad headache, he was requesting motrin. Educated patient about the risks of bleeding with motrin. He is also requesting a medication to help him get some sleep tonight as he has been having trouble sleeping the past few days.Patient said that melatonin does not work for him. MD Tripp made aware and said he will order medications
[2024-08-01] MEDS: ACETAMINOPHEN SUPP 650 MG SUPP PR (20:36)
[2024-08-01] MEDS: DiphenhydrAMINE INJ 50 MG/ML VIAL 12.5 MG IV (20:37)
[2024-08-01] MEDS: DOCUSATE SOD 100 MG CAPSULE PO (20:37)
[2024-08-02] VITALS (11 sets, daily range): BP systolic 110–120; BP diastolic 66–78; PULSE 61–97; RESP 14–98; TEMP 36.1–37.2; O2SAT 91–97
[2024-08-02] MEDS: KCL 20 mEq/L in D5-1/2NS 20 MEQ/1,000 ML BAG 100 MEQ IV (03:13)
[2024-08-02] MEDS: PIPER/TAZO 3.375 GM PREMIX 3.375 GM/50 ML BAG IV ×3 (05:11→22:06)
[2024-08-02] MEDS: ACETAMINOPHEN IVPB 1,000 MG/100 ML VIAL 250 MG IV ×2 (05:12→12:10)
[2024-08-02 06:10] LABS: Basophils % (Auto) 0 % (0-2.5); Eosinophils % (Auto) 0 % (0-10); Hematocrit 38.5 % (41.0-53.0); Hemoglobin 13.2 g/dL (13.5-16.0); Immature Granulocytes % (Auto) 0 % (0-0); Immature Granulocytes Auto 0.04 Thou/mm3 (0.00-0.00); Lymphocytes # (Auto) 1.3 Thou/mm3 (1.0-4.8); Lymphocytes % (Auto) 12 % (10-50); Mean Corpuscular HGB Conc 34.3 g/dl (31.0-37.0); Mean Corpuscular Volume 93 fL (80-100); Monocytes # (Auto) 1.2 Thou/mm3 (0.0-0.8); Monocytes % (Auto) 12 % (0-12); Neutrophils # (Auto) 7.8 Thou/mm3 (1.8-7.7); Neutrophils % (Auto) 75 % (37-80); Nucleated Red Blood Cell % 0 /100 WBC (0); Platelet Count 267 Thou/mm3 (140-440); RDW Standard Deviation 41.2 fL (35.1-43.9); Red Blood Count 4.13 Miln/mm3 (4.50-5.90); White Blood Count 10.4 Thou/mm3 (3.8-10.6)
[2024-08-02 06:22] LABS: Collection Type, Urine Clean Catch; Squamous Epithelial Cell,Urine 0 /hpf (0-5)
[2024-08-02 07:02] LABS: Alanine Aminotransferase 15 U/L (10-49); Albumin, Serum 3.7 gm/dL (3.5-5.0); Albumin/Globulin Ratio 1.4 (1.2-2.2); Alkaline Phosphatase 59 U/L (46-116); Anion Gap 6 (7-16); Aspartate Amino Transferase 12 U/L (0-34); BUN/Creatinine Ratio 9 Ratio (12-20); Bilirubin,Total 0.4 mg/dL (0.3-1.2); Blood Urea Nitrogen 10 mg/dL (9-23); Calcium 8.9 mg/dL (8.3-10.6); Calcium (Corrected) 9.1 mg/dL (8.5-10.1); Carbon Dioxide 27.8 mMol/L (20.0-31.0); Chloride 104 mMol/L (98-107); Creatinine (Component) 1.1 mg/dL (0.6-1.3); Estimated Creatinine Clearance 114.6 mL/min (>60); Globulin 2.7 gm/dL (2.3-3.5); Glucose 140 mg/dL (74-106); Magnesium 2.1 mg/dL (1.6-2.6); Osmolality,Calculated 276 (275-295); Phosphorous 2.7 mg/dL (2.4-5.1); Potassium 4.7 mMol/L (3.4-5.1); Sodium 138 mMol/L (136-145); Total Protein 6.4 gm/dL (5.7-8.2); eGFR > 60 See Note
[2024-08-02 07:21] LABS: Bilirubin,Urine Negative (Negative); Blood,Urine Negative (Negative); Clarity,Urine Clear (Clear/Hazy); Color,Urine Yellow (Lt Yel-Yel); Glucose, Urine Negative (Negative); Ketones,Urine Trace (Negative); Leukocyte Esterase,Urine Negative (Negative); Nitrite,Urine Negative (Negative); PH,Urine 6.5 (5.0-7.0); Protein,Urine 1+ (Neg - Trace); RBC,Urine 4 /hpf (0-3); Specific Gravity,Urine 1.032 (1.001-1.035); Urobilinogen,Urine Negative mg/dL (0.0-1.0); WBC,Urine 5 /hpf (0-5)
[2024-08-02] MEDS: DOCUSATE SOD 100 MG CAPSULE PO ×2 (08:05→20:10)
--- NOTE | 2024-08-02 12:07 | PD.SURPROG ---
Documentation for date of: 08/02/24 Subjective Subjective Narrative: Patient is seen and examined. His pain is improving. He was started on liquid diet. He denies nausea or vomiting. He has been voiding without difficulty and passing flatus Exam Vital Signs Temp Pulse Resp BP Pulse Ox O2 Del Method O2 Flow Rate 96.9 F 97 14 111/70 97 Nasal Cannula 2 08/02/24 07:53 08/02/24 07:53 08/02/24 07:53 08/02/24 07:53 08/02/24 07:53 08/02/24 07:53 08/02/24 07:53 Constitutional Constitutional: no acute distress Routine Abdominal Exam Abdominal: Present soft, normoactive bowel sounds, tenderness (Incisions clean, dry and intact) and distended (Minimally distended) Assessment & Plan Assessment Additional comments: Postop day #1 status post laparoscopic appendectomy with abdominal washout Plan Continue IV antibiotics for perforated gangrenous appendicitis with peritonitis and abscess. Will keep patient on liquid diet today. Patient is advised to increase ambulation Procedures Procedures Laparoscopic appendectomy with abdominal washout
--- NOTE | 2024-08-02 12:08 | PD.RESPRO ---
Documentation for date of: 08/02/24 Subjective Subjective Interval history: No overnight events. Patient seen examined at bedside, resting comfortably. Patient endorses minimal abdominal pain, worse with movement. Denies nausea, vomiting, chest pain, fever, chills, shortness of breath. Diet advanced to full liquid by surgeon Dr. Domingo. Continue to advance diet as tolerated as per surgery recommendations. Probable DC tomorrow. Exam Vital Signs Temp Pulse Resp BP Pulse Ox O2 Del Method O2 Flow Rate 96.9 F 97 14 111/70 97 Nasal Cannula 2 08/02/24 07:53 08/02/24 07:53 08/02/24 07:53 08/02/24 07:53 08/02/24 07:53 08/02/24 07:53 08/02/24 07:53 Narrative Exam PE: Gen: Well-developed and well-nourished. HEENT: NCAT, PERRLA, EOMI, MMM, anicteric conjunctivae. CVS: normal S1 and S2. RRR. No M/R/G. Resp: CTA B/L. No rhonchi, rales, crackles or wheezing. Abd: Diffuse abdominal tenderness. MSK: Good ROM in BUE & BLE. No edema or rash. Neuro: CN II-XII grossly intact. Strength 5/5 in BUE & BLE. Alert and oriented x3. Psych: appropriate mood and affect. Objective Labs 08/02/24 05:59 08/02/24 05:59 Labs: Laboratory Results - last 24 hr 08/02/24 08/02/24 05:59 06:10 WBC 10.4 D RBC 4.13 L Hgb 13.2 L Hct 38.5 L MCV 93 MCH 32.0 MCHC 34.3 RDW Std Deviation 41.2 Plt Count 267 D Neut % (Auto) 75 Lymph % (Auto) 12 [place] % (Auto) 12 Eos % (Auto) 0 Baso % (Auto) 0 Neut # (Auto) 7.8 H Lymph # (Auto) 1.3 [place] # (Auto) 1.2 H Eos # (Auto) 0.0 Baso # (Auto) 0.0 Immature Gran # (Auto) 0.04 H Absolute Nucleated RBC 0.00 Immature Gran % 0 Nucleated RBC % 0 Sodium 138 Potassium 4.7 Chloride 104 Carbon Dioxide 27.8 Anion Gap 6 L BUN 10 Creatinine 1.1 Estim Creat Clear Calc 114.6 eGFR > 60 BUN/Creatinine Ratio 9 L Glucose 140 H Calculated Osmolality 276 Calcium 8.9 Corrected Calcium 9.1 Phosphorus 2.7 Magnesium 2.1 Total Bilirubin 0.4 AST 12 ALT 15 Alkaline Phosphatase 59 Total Protein 6.4 Albumin 3.7 Globulin 2.7 Albumin/Globulin Ratio 1.4 Ur Collection Type Clean Catch Urine Color Yellow Urine Clarity Clear Urine pH 6.5 Ur Specific [place] 1.032 Urine Protein 1+ A Urine Glucose (UA) Negative Urine Ketones Trace Urine Blood Negative Urine Nitrite Negative Urine Bilirubin Negative Urine Urobilinogen (Auto) Negative Ur Leukocyte Esterase Negative Urine RBC 4 H Urine WBC 5 Ur Squamous Epith Cells 0 Urine Bacteria None ABG Interpretation ABG results: 07/31/24 20:27 VBG pH 7.49 VBG pCO2 38 VBG pO2 19 VBG Base Excess 6 H Quality Measures Quality Measures VTE prophylaxis Assessment & Plan Assessment Current Active Medications: Generic Name Dose Route Start Last Admin Trade Name Freq PRN Reason Stop Dose Admin Acetaminophen 650 mg 08/01/24 03:26 Acetaminophen 325 Mg Tablet PO 08/31/24 03:25 Q6H PRN PAIN SCALE 1-3 (mild Hydrocodone Bitart/Acetaminophen 1 tab 08/01/24 03:26 Hydrocodone/Apap 5/325 Tablet PO 08/06/24 03:25 Q4HR PRN PAIN SCALE 4-6 (Moderate Docusate Sodium 100 mg 08/01/24 21:00 08/02/24 08:05 Docusate Sod 100 Mg Capsule PO 08/31/24 20:59 100 mg BID SANTOS Administration Protocol Piperacillin/Tazobactam/Dextrose 3.375 gm in 50 mls @ 12.5 mls/hr 08/01/24 14:00 08/02/24 05:11 Zosyn IV 08/08/24 13:59 12.5 mls/hr Q8HR SANTOS Administration Protocol Potassium Chloride/Dextrose/Sod Cl 20 meq in 1,000 mls @ 100 mls/hr 08/01/24 16:30 08/02/24 03:13 Kcl 20 Meq/L In D5-1/2ns IV 08/31/24 16:29 100 mls/hr .Q10H SANTOS Administration Acetaminophen 1,000 mg in 100 mls @ 250 mls/hr 08/02/24 00:00 08/02/24 05:12 Ofirmev Inj IV 08/02/24 12:23 250 mls/hr Q6HR SANTOS Administration Morphine Sulfate 2 mg 08/01/24 03:26 Morphine Sulf Inj 10 Mg/Ml Vial IVP 08/06/24 03:25 Q4H PRN PAIN SCALE 7-10 (Severe Ondansetron HCl 4 mg 08/01/24 16:30 Ondansetron Inj 2 Mg/Ml Inj 2 Ml IV 08/31/24 16:29 Q6HR PRN NAUSEA OR VOMITING Protocol Plan 38-year-old male with no significant past medical history presented to ED with chief complaint of right lower abdominal pain for 1 days. The patient also received 10 Mg IV diazepam and morphine sulfate 5 Mg IV x 1 and was admitted to [facility] telemetry unit for further management of ruptured appendicitis. #Ruptured appendicitis s/p laparoscopic appendectomy The patient presented with right lower abdominal pain that radiated towards right flank and back, associated with fever and nausea. Has history of constipation. Patient states that abdominal pain for approximately 1 week, became significantly worse prompting ED visit. CT abdomen/pelvis revealed ruptured appendicitis as per preliminary read. Pulse rate 107, white count 17.3. Received 2 L of IV bolus fluid in the ED. Received 3 dose of Zofran and Zosyn in the ED. Patient received laparoscopic appendectomy with washout of localized abscess, well-tolerated. Patient diet advanced to full liquid by surgery. -Continue with IV Zosyn 3.375 Mg every 8 hourly -Dr Domingo consulted, appreciate recommendations -Full liquid diet -Pain management -Blood and urine culture ordered #Mild hypercalcemia, resolved Likely secondary to dehydration. Received 2 L of IV bolus normal saline Improved to normal levels. -Monitor calcium level daily Lines: Peripheral IV Diet: Full liquid diet DVT prophylaxis: SCDs CODE STATUS: Full code Plan of care discussed with attending Dr. Jay. Zi Barrios MD PGY?1 Attending Provider Attestation/Addendum I have examined the patient, reviewed labs and imaging findings, discussed the case with the resident(s), and reviewed entered orders. I agree with the plan of care as outlined in this note, with these additional summaries/recommendations: Patient seen at bedside. No acute overnight events. Patient reports his pain is currently controlled. Patient is POD #1 s/p laparoscopic appendectomy with abdominal washout. Patient receiving IV Zosyn and general surgery following. Continue pain management and start Full liquid diet per surgery. Patient updated on the plan and in agreement. Repeat hematology and chemistry panel in AM. Dr. Pierre MD
[2024-08-02] MEDS: HYDROcodone/APAP 5/325 TABLET 1 TAB PO ×2 (16:49→22:11)
[2024-08-02] MEDS: MORPHINE SULF INJ 10 MG/ML VIAL 2 MG IVP (20:25)
[2024-08-02] MEDS: DiphenhydrAMINE 25 MG CAPSULE PO (22:06)
[2024-08-03] VITALS (12 sets, daily range): BP systolic 102–129; BP diastolic 76–84; PULSE 65–757; RESP 18–95; TEMP 36.1–37; O2SAT 90–98
[2024-08-03] MEDS: KETOROLAC INJ 30 MG/ML VIAL IVP (02:21)
[2024-08-03] MEDS: PANTOPRAZOLE INJ 40 MG VIAL IVP ×2 (02:22→09:22)
[2024-08-03] MEDS: SIMETHICONE 80 MG CHEW PO (02:22)
[2024-08-03] MEDS: PIPER/TAZO 3.375 GM PREMIX 3.375 GM/50 ML BAG IV ×3 (06:01→22:15)
[2024-08-03 06:02] LABS: Basophils % (Auto) 0 % (0-2.5); Eosinophils # (Auto) 0.1 Thou/mm3 (0.0-0.5); Eosinophils % (Auto) 1 % (0-10); Hematocrit 46.7 % (41.0-53.0); Immature Granulocytes % (Auto) 1 % (0-0); Immature Granulocytes Auto 0.07 Thou/mm3 (0.00-0.00); Lymphocytes # (Auto) 1.3 Thou/mm3 (1.0-4.8); Lymphocytes % (Auto) 10 % (10-50); Mean Corpuscular HGB Conc 34.3 g/dl (31.0-37.0); Mean Corpuscular Hemoglobin 32.5 pg (25.0-35.0); Mean Corpuscular Volume 95 fL (80-100); Monocytes # (Auto) 1.1 Thou/mm3 (0.0-0.8); Monocytes % (Auto) 8 % (0-12); Neutrophils # (Auto) 10.3 Thou/mm3 (1.8-7.7); Neutrophils % (Auto) 81 % (37-80); Nucleated Red Blood Cell % 0 /100 WBC (0); Platelet Count 268 Thou/mm3 (140-440); RDW Standard Deviation 42.7 fL (35.1-43.9); Red Blood Count 4.93 Miln/mm3 (4.50-5.90); White Blood Count 12.8 Thou/mm3 (3.8-10.6)
[2024-08-03 06:24] LABS: Alanine Aminotransferase 17 U/L (10-49); Albumin/Globulin Ratio 1.3 (1.2-2.2); Alkaline Phosphatase 66 U/L (46-116); Anion Gap 10 (7-16); Aspartate Amino Transferase 19 U/L (0-34); BUN/Creatinine Ratio 8 Ratio (12-20); Bilirubin,Total 0.4 mg/dL (0.3-1.2); Blood Urea Nitrogen 9 mg/dL (9-23); Calcium 10.2 mg/dL (8.3-10.6); Calcium (Corrected) 10.2 mg/dL (8.5-10.1); Carbon Dioxide 25.8 mMol/L (20.0-31.0); Chloride 101 mMol/L (98-107); Creatinine (Component) 1.1 mg/dL (0.6-1.3); Globulin 3.2 gm/dL (2.3-3.5); Glucose 115 mg/dL (74-106); Magnesium 1.9 mg/dL (1.6-2.6); Osmolality,Calculated 273 (275-295); Phosphorous 2.6 mg/dL (2.4-5.1); Potassium 4.8 mMol/L (3.4-5.1); Sodium 137 mMol/L (136-145); Total Protein 7.2 gm/dL (5.7-8.2); eGFR > 60 See Note
[2024-08-03] MEDS: DOCUSATE SOD 100 MG CAPSULE PO ×2 (09:23→22:15)
--- NOTE | 2024-08-03 13:10 | ESPR_ITS ---
<Statement entered by Nona Hoff MD - 08/03/24 15:16> I discussed with and supervised the compliance intern physician who took care of this patient. I personally saw and examined the patient and discussed the assessment and plan with the entire medicine team, including my attending Dr. Jay, I agree with the assessment and plan as documented below Patient seen and examined at bedside today. Labs and imaging reviewed. Overnight patient was complaining of severe abdominal pain This morning the bedside patient stated a much better that his pain is bearable at this moment, he denied any acute complaints like chest pain, palpitation, patient still did not have a bowel movement yet otherwise he stated that he is passing gas and tolerating full liquid diet. We encourage patient to ambulate, general surgery is following up the case with greatly appreciate recommendations and if patient remains stable we will anticipate discharge?24 to 48 hours. Nona Hoff MD PGY-3 Disclaimer: Despite multiple revisions, due to the dictation software being used, the document bellow may not be free of grammatical errors including phonetic/typographic errors. However, this does not deter from our commitment to providing health care in the patient's best interest in mind. <Statement entered by Tete Walters MD - 08/03/24 14:44> Patient seen and examined at bedside. Overnight, patient received morphine 2 mg, IV Toradol, simethicone, and Benadryl. Patient states that his pain is mildly better, and improves with ambulation and when he passes gas/burps. Patient states that he has not had a bowel movement but is tolerating full liquid diet well. Patient states that continues to feel bloated and discomfort. Anticipate discharge within 24 to 48 hours, pending final surgery recommendations. I discussed with and supervised the compliance intern physician who took care of this patient. I personally saw and examined the patient and discussed the assessment and plan with the entire medicine team, including my attending , I agree with most of the assessment and plan as documented below Tete Walters M.D. PGY-2 Disclaimer: Despite multiple revisions, due to the dictation software being used, the document bellow may not be free of grammatical errors including phonetic/typographic errors. However, this does not deter from our commitment to providing health care in the patient's best interest in mind. Documentation for date of: 08/03/24 Subjective Subjective Interval history: Overnight: Patient complained of significant pain requiring Toradol, simethicone, Protonix. Patient seen examined at bedside. Patient mildly distressed, endorses periods of abdominal pain, currently resolved. States pain is crampy and feels like gas, improved with movement and abdominal binder. Patient otherwise well, passing gas, having bowel movements, tolerating full liquid diet well. Denies fevers, chills, shortness of breath. Exam Vital Signs Temp Pulse Resp BP Pulse Ox O2 Del Method O2 Flow Rate 97.4 F 83 18 123/83 95 Room Air 2 08/03/24 11:16 08/03/24 11:52 08/03/24 11:16 08/03/24 11:16 08/03/24 11:16 08/03/24 11:16 08/02/24 07:53 Narrative Exam PE: Gen: Well-developed and well-nourished. HEENT: NCAT, PERRLA, EOMI, MMM, anicteric conjunctivae. CVS: normal S1 and S2. RRR. No M/R/G. Resp: CTA B/L. No rhonchi, rales, crackles or wheezing. Abd: Diffuse abdominal tenderness, worse on the right. MSK: Good ROM in BUE & BLE. No edema or rash. Neuro: CN II-XII grossly intact. Strength 5/5 in BUE & BLE. Alert and oriented x3. Psych: appropriate mood and affect. Objective Labs 08/03/24 05:13 08/03/24 05:13 Labs: Laboratory Results - last 24 hr 08/03/24 05:13 WBC 12.8 H RBC 4.93 Hgb 16.0 D Hct 46.7 MCV 95 MCH 32.5 MCHC 34.3 RDW Std Deviation 42.7 Plt Count 268 Neut % (Auto) 81 H Lymph % (Auto) 10 [place] % (Auto) 8 Eos % (Auto) 1 Baso % (Auto) 0 Neut # (Auto) 10.3 H Lymph # (Auto) 1.3 [place] # (Auto) 1.1 H Eos # (Auto) 0.1 Baso # (Auto) 0.0 Immature Gran # (Auto) 0.07 H Absolute Nucleated RBC 0.00 Immature Gran % 1 H Nucleated RBC % 0 Sodium 137 Potassium 4.8 Chloride 101 Carbon Dioxide 25.8 Anion Gap 10 BUN 9 Creatinine 1.1 Estim Creat Clear Calc 114.0 eGFR > 60 BUN/Creatinine Ratio 8 L Glucose 115 H Calculated Osmolality 273 L Calcium 10.2 Corrected Calcium 10.2 H Phosphorus 2.6 Magnesium 1.9 Total Bilirubin 0.4 AST 19 ALT 17 Alkaline Phosphatase 66 Total Protein 7.2 Albumin 4.0 Globulin 3.2 Albumin/Globulin Ratio 1.3 ABG Interpretation ABG results: 07/31/24 20:27 VBG pH 7.49 VBG pCO2 38 VBG pO2 19 VBG Base Excess 6 H Quality Measures Quality Measures VTE prophylaxis Assessment & Plan Assessment Current Active Medications: Generic Name Dose Route Start Last Admin Trade Name Freq PRN Reason Stop Dose Admin Acetaminophen 650 mg 08/01/24 03:26 Acetaminophen 325 Mg Tablet PO 08/31/24 03:25 Q6H PRN PAIN SCALE 1-3 (mild Hydrocodone Bitart/Acetaminophen 1 tab 08/01/24 03:26 08/02/24 22:11 Hydrocodone/Apap 5/325 Tablet PO 08/06/24 03:25 1 tab Q4HR PRN Administration PAIN SCALE 4-6 (Moderate Docusate Sodium 100 mg 08/01/24 21:00 08/03/24 09:23 Docusate Sod 100 Mg Capsule PO 08/31/24 20:59 100 mg BID SANTOS Administration Protocol Piperacillin/Tazobactam/Dextrose 3.375 gm in 50 mls @ 12.5 mls/hr 08/01/24 14:00 08/03/24 06:01 Zosyn IV 08/08/24 13:59 12.5 mls/hr Q8HR SANTOS Administration Protocol Morphine Sulfate 2 mg 08/01/24 03:26 08/02/24 20:25 Morphine Sulf Inj 10 Mg/Ml Vial IVP 08/06/24 03:25 2 mg Q4H PRN Administration PAIN SCALE 7-10 (Severe Ondansetron HCl 4 mg 08/01/24 16:30 Ondansetron Inj 2 Mg/Ml Inj 2 Ml IV 08/31/24 16:29 Q6HR PRN NAUSEA OR VOMITING Protocol Pantoprazole Sodium 40 mg 08/03/24 02:15 08/03/24 09:22 Pantoprazole Inj 40 Mg Vial IVP 04/23/25 02:14 40 mg QDAY SANTOS Administration Plan 38-year-old male with no significant past medical history presented to ED with chief complaint of right lower abdominal pain for 1 days. The patient also received 10 Mg IV diazepam and morphine sulfate 5 Mg IV x 1 and was admitted to [facility] telemetry unit for further management of ruptured appendicitis. #Ruptured appendicitis s/p laparoscopic appendectomy The patient presented with right lower abdominal pain that radiated towards right flank and back, associated with fever and nausea. Has history of constipation. Patient states that abdominal pain for approximately 1 week, became significantly worse prompting ED visit. CT abdomen/pelvis revealed ruptured appendicitis as per preliminary read. Pulse rate 107, white count 17.3. Received 2 L of IV bolus fluid in the ED. Received 3 dose of Zofran and Zosyn in the ED. Patient received laparoscopic appendectomy with washout of localized abscess, well-tolerated. Patient diet advanced to full liquid by surgery. Patient complaining of crampy abdominal pain that feels like gas, relieved with movement and abdominal binder. Patient is passing gas, having bowel movements. Mild increase in leukocytes without fever. Blood cultures negative. -Continue with IV Zosyn 3.375 Mg every 8 hourly -Protonix 40 mg IV daily -Dr Domingo consulted, appreciate recommendations -Full liquid diet -Pain management -urine culture pending #Mild hypercalcemia, resolved Likely secondary to dehydration. Received 2 L of IV bolus normal saline Improved to normal levels. -Monitor calcium level daily Lines: Peripheral IV GI prophylaxis: Protonix Diet: Full liquid diet DVT prophylaxis: SCDs CODE STATUS: Full code Plan of care discussed with senior residents Dr. Walters PGY?[address] Hoff PGY?3, and attending Dr. Jay. Zi Barrios MD PGY?1 Attending Provider Attestation/Addendum I have examined the patient, reviewed labs and imaging findings, discussed the case with the resident(s), and reviewed entered orders. I agree with the plan of care as outlined in this note, with these additional summaries/recommendations: Patient seen at bedside. Overnight patient developed moderate to severe abdominal pain which improved with morphine. He reports the pain is improved today although not resolved. He does not think he has had a bowel movement since admission and is endorsing indigestion. Patient encouraged to ambulate. Patient is POD #2 s/p laparoscopic appendectomy with abdominal washout. Patient receiving IV Zosyn and general surgery following. Minor increase in WBC count today and repeat hematology panel in am. Continue pain management and will continue with full liquid diet for now. Patient updated on the plan and in agreement. Repeat hematology and chemistry panel in AM. Dr. Pierre MD
--- NOTE | 2024-08-03 15:08 | PD.SURPROG ---
Documentation for date of: 08/03/24 Subjective Subjective Narrative: Patient is seen and examined. He is resting comfortably. Pain is improving. He is tolerating liquids without nausea or vomiting he is voiding and ambulating without difficulty and passing flatus Exam Vital Signs Temp Pulse Resp BP Pulse Ox O2 Del Method O2 Flow Rate 97.4 F 83 18 123/83 95 Room Air 2 08/03/24 11:16 08/03/24 11:52 08/03/24 11:16 08/03/24 11:16 08/03/24 11:16 08/03/24 11:16 08/02/24 07:53 Constitutional Constitutional: no acute distress Routine Abdominal Exam Comments: Abdomen is soft and nondistended. Incisions are clean, dry and intact Assessment & Plan Assessment Additional comments: Postop day #2 status post laparoscopic appendectomy with abdominal washout Plan Continue IV antibiotics, WBC still elevated. Advance to regular diet Procedures Procedures Laparoscopic appendectomy with abdominal washout
[2024-08-04] VITALS: BP 114/67; PULSE 72; PULSE 86; RESP 18; TEMP 36.5; O2SAT 95
[2024-08-04 04:00] VITALS: BP 118/62; PULSE 73; RESP 18; TEMP 37.1
[2024-08-04] MEDS: PIPER/TAZO 3.375 GM PREMIX 3.375 GM/50 ML BAG IV (06:10)
[2024-08-04 06:22] LABS: Basophils % (Auto) 0 % (0-2.5); Eosinophils # (Auto) 0.2 Thou/mm3 (0.0-0.5); Eosinophils % (Auto) 3 % (0-10); Hemoglobin 14.4 g/dL (13.5-16.0); Immature Granulocytes % (Auto) 1 % (0-0); Immature Granulocytes Auto 0.04 Thou/mm3 (0.00-0.00); Lymphocytes # (Auto) 1.9 Thou/mm3 (1.0-4.8); Lymphocytes % (Auto) 22 % (10-50); Mean Corpuscular HGB Conc 35.1 g/dl (31.0-37.0); Mean Corpuscular Hemoglobin 32.7 pg (25.0-35.0); Mean Corpuscular Volume 93 fL (80-100); Monocytes # (Auto) 0.8 Thou/mm3 (0.0-0.8); Monocytes % (Auto) 9 % (0-12); Neutrophils # (Auto) 5.5 Thou/mm3 (1.8-7.7); Neutrophils % (Auto) 65 % (37-80); Nucleated Red Blood Cell % 0 /100 WBC (0); Platelet Count 312 Thou/mm3 (140-440); RDW Standard Deviation 42.5 fL (35.1-43.9); Red Blood Count 4.41 Miln/mm3 (4.50-5.90); White Blood Count 8.4 Thou/mm3 (3.8-10.6)
[2024-08-04 06:47] LABS: Alanine Aminotransferase 23 U/L (10-49); Albumin/Globulin Ratio 1.5 (1.2-2.2); Alkaline Phosphatase 59 U/L (46-116); Anion Gap 8 (7-16); Aspartate Amino Transferase 14 U/L (0-34); BUN/Creatinine Ratio 10 Ratio (12-20); Bilirubin,Total 0.4 mg/dL (0.3-1.2); Blood Urea Nitrogen 11 mg/dL (9-23); Calcium 9.7 mg/dL (8.3-10.6); Calcium (Corrected) 9.7 mg/dL (8.5-10.1); Carbon Dioxide 27.4 mMol/L (20.0-31.0); Chloride 101 mMol/L (98-107); Creatinine (Component) 1.1 mg/dL (0.6-1.3); Estimated Creatinine Clearance 115.1 mL/min (>60); Globulin 2.7 gm/dL (2.3-3.5); Glucose 101 mg/dL (74-106); Magnesium 1.9 mg/dL (1.6-2.6); Osmolality,Calculated 271 (275-295); Phosphorous 4.8 mg/dL (2.4-5.1); Potassium 4.1 mMol/L (3.4-5.1); Sodium 136 mMol/L (136-145); Total Protein 6.7 gm/dL (5.7-8.2); eGFR > 60 See Note
[2024-08-04 07:23] VITALS: PULSE 89; RESP 17; RESP 93
[2024-08-04 08:00] VITALS: BP 128/78; PULSE 75; RESP 18; TEMP 37.1; O2SAT 93
[2024-08-04] MEDS: PANTOPRAZOLE INJ 40 MG VIAL IVP (08:45)
[2024-08-04] MEDS: DOCUSATE SOD 100 MG CAPSULE PO (08:45)
[2024-08-04 09:45] VITALS: BMI 35.4
[2024-08-04 12:00] VITALS: BP 122/78; PULSE 72; RESP 17; TEMP 36.1; O2SAT 94
--- NOTE | 2024-08-04 14:45 | ESDS_ITS ---
<Statement entered by Nona Hoff MD - 08/04/24 15:01> I discussed with and supervised the security intern physician who took care of this patient. I personally saw and examined the patient and discussed the assessment and plan with the entire medicine team, including my attending Dr. Jay, I agree with the assessment and plan as documented below Patient seen and examined at bedside today. Labs and imaging reviewed. Nona Hoff MD PGY-3 Disclaimer: Despite multiple revisions, due to the dictation software being used, the document bellow may not be free of grammatical errors including phonetic/typographic errors. However, this does not deter from our commitment to providing health care in the patient's best interest in mind. <Statement entered by Tete Walters MD - 08/04/24 15:01> I discussed with and supervised the security intern physician who took care of this patient. I personally saw and examined the patient and discussed the assessment and plan with the entire medicine team, including my attending Dr. Jay, I agree with most of the assessment and plan as documented below Tete Walters M.D. PGY-2 Planned Discharge Date 08/04/24 DS: Providers Provider Date of admission: 08/01/24 03:28 Primary care physician: Physician No Primary/Family Admitting Provider: Miriam Meyer MD Attending Provider on Admission: Phong Jay MD Consults: 08/01/24 02:11 Consult to General Surgery Stat Comment: Consulting Provider: Seymour Domingo Attending Provider on DC: Phong Jay MD Discharging Provider: Zi Barrios MD DS: Diagnosis Problem List Completed Was Problem List Reviewed/Reconciled?: Yes Hospital Course Hospital Course Hospital course: 38-year-old male with no significant past medical history presented to ED on 08/01/2024 with chief complaint of right lower abdominal pain. CT imaging confirmed appendicitis, with ruptured appendix. Patient had laparoscopic appendectomy, with abdominal washout of localized abscess, well-tolerated. Patient received IV antibiotics during hospital admission. Patient able to ambulate well, tolerating regular p.o. intake, having bowel movements normally. Patient stable for discharge from surgical perspective. Patient medically stable and cleared for discharge. Discharge plan: You have been started on the following medications: -Ciprofloxacin 500 mg twice daily for 7 days -R[place] 5 as needed for severe pain, up to 3 times per day, 7 tabs total Please follow-up with your Primary Care Provideeer within 1-2 weeks Return to the ED if you develop new or worsening symptoms Diagnoses: #Ruptured appendicitis s/p laparoscopic appendectomy #Mild hypercalcemia, resolved Plan of care discussed with senior resident Dr. Walters PGY?[address] Hoff PGY?3, and attending Dr. Jay. Zi Barrios MD PGY?1 Status at Discharge Overall status at discharge: patient is progressing back to baseline Time Spent with Patient Time attestation: Total time spent providing and/or coordinating discharge services: Time spent: Greater than 30 minutes Exam Vital Signs Temp Pulse Resp BP Pulse Ox O2 Del Method O2 Flow Rate 97.0 F 72 17 122/78 94 L Room Air 2 08/04/24 12:00 08/04/24 12:00 08/04/24 12:00 08/04/24 12:00 08/04/24 12:00 08/04/24 12:00 08/03/24 16:00 Narrative Exam PE: Gen: Well-developed and well-nourished. HEENT: NCAT, PERRLA, EOMI, MMM, anicteric conjunctivae. CVS: normal S1 and S2. RRR. No M/R/G. Resp: CTA B/L. No rhonchi, rales, crackles or wheezing. Abd: Diffuse abdominal tenderness, worse on the right, improved. MSK: Good ROM in BUE & BLE. No edema or rash. Neuro: CN II-XII grossly intact. Strength 5/5 in BUE & BLE. Alert and oriented x3. Psych: appropriate mood and affect. Discharge Plan Plan Patient Disposition: HOME (Self Care) Patient condition on transfer: Stable Care Plan Goals: You have been started on the following medications: -Ciprofloxacin 500 mg twice daily for 7 days -R[place] 5 as needed for severe pain, up to 3 times per day, 7 tabs total Please follow-up with your Primary Care Provideeer within 1-2 weeks Return to the ED if you develop new or worsening symptoms Prescriptions/Referrals Prescriptions/Med Rec: New ciprofloxacin HCl 500 mg tablet 500 mg PO BID 7 Days Qty: 14 0RF hydrocodone-acetaminophen 5-325 mg tablet 1 tab PO Q6H MDD 2 PRN (Reason: pain) Qty: 7 0RF Discontinued hydrocodone-acetaminophen [Rancoc[place]] 5-325 mg tablet 1 tab PO Q6H MDD 4 tabs PRN (Reason: pain) Qty: 10 0RF Referrals: No Primary/Family,Physician [Primary Care Provider] - Patient/Caregiver Discharge Instructions Discharge Activity: activity as tolerated Education Materials: Appendectomy Laparoscopic Dc, Preventing Surgical Site Infections Print Language: Bulgarian Stand Alone Forms: Lanette Award Info., Patient Portal Info Letter Discharge Order Discharge Orders: Discharge (Routine); Ordered 08/04/24 Ordered By: Zi Barrios Quality Discharge Quality Measures VTE prophylaxis Attestestation MD Attestation I have examined the patient, reviewed labs and imaging findings, discussed the case with the resident(s), and reviewed entered orders. I agree with the plan of care as outlined in this note. Time Spent: [address] Pierre MD
== END 2024-08-04 11:45 | disposition home or self-care (01) | DRG 399 ==
LOC: SERX 08-01 02:21 → SERHOLD 08-01 04:36 → S3NX 08-01 06:13
PROVIDERS: Physician Assistant; Student in an Organized Health Care Education/Training Program; Surgery; Admitting Provider Internal Medicine; Emergency Provider Emergency Medicine; Visit Provider Student in an Organized Health Care Education/Training Program
PROC: 0DTJ4ZZ Resection of Appendix, Percutaneous Endoscopic Approach (ICD-10-PCS; CPT 44970; principal; 2024-08-01 12:30)
DX: K35.33 Acute appendicitis with perforation, localized peritonitis, and gangrene, with abscess (principal); K59.00 Constipation, unspecified; E83.52 Hypercalcemia; E86.0 Dehydration; Z87.891 Personal history of nicotine dependence
CPT/HCPCS: 36415; 74177; 80053; 80061; 80307; 81001; 82550; 82803; 83605; 83690; 83735; 84100; 84145; 84443; 85025; 87040; 87086; 87811; 93225; 96361; 96365; 96368; 96375; 96376; 99285; A4217; A4649; J0131; J1200; J1580; J1885; J2250; J2270; J2405; J2470; J2543; J2704; J3010; J3360; J3480; J3490; J7030; J7120; Q9967; A9270

== ENCOUNTER 2024-08-30 05:12 | Emergency (ER) | payer OTHER, SELFPAY ==
[2024-08-30 05:13] VITALS: BMI 33.5
[2024-08-30 05:20] VITALS: BP 157/90; PULSE 55; RESP 18; TEMP 36.8; O2SAT 97
--- NOTE | 2024-08-30 05:25 | PD.EDDENTL ---
ED Dental RME/HPI General Chief complaint: Dental/Oral/Throat Stated complaint: TOOTH PAIN, FACIAL SWELLING Time Seen by Provider: 08/30/24 05:22 Arrival date/time: 08/30/24 05:12 38 year old male present to emergency room with c/o of tooth pain/swelling for 1 day. patient report pulling a loose tooth 3 days ago. LOCATION: Tooth SEVERITY: Symptoms are described as being severe with limitations on activities of daily living CONTEXT: The patient is unable to identify any inciting events. DURATION/TIMING: The symptoms started approximately 1 day ASSOCIATED SYMPTOMS: The patient is unable to identify any other associated symptoms. MODIFYING FACTORS: The patient is unable to identify any alleviating or aggravating symptoms. PERTINENT ROS: no fevers, no chest pain/shortness of breath no nausea,vomiting, diarrhea, no dizziness/headache no rash no loc/syncope episode, no difficulty swallowing REVIEW OF SYSTEMS: See History of Present Illness - with the exception of those mentioned in the history of present illness, all other systems reviewed and reported as negative GENERAL: In general the patient is awake, interactive, in an emergency department rsandy. HEAD/EYES/EARS/NOSE/THROAT: teeth and gingiva in okay condition, left upper partial facture molar noted. no airway obstruction or ludwigs normo-cephalic, atraumatic, mucus membranes are moist, anicteric, palpebral conjunctiva is pink, trachea is midline. CARDIOVASCULAR: regular rate and regular rhythm, no murmurs, heart sounds are not distant, strong pulses in all four extremities that are equal and symmetric bilateral upper and lower extremities, normal capillary refill. CHEST/PULMONARY: normal chest rise and fall, good air movement, clear to auscultation bilaterally, normal inspiratory to expiratory ratios without evidence of respiratory distress. EXTREMITY: no tenderness to palpation over the long bones or large joints of the bilateral upper and lower extremities, no joint swelling, no joint erythema, no signs of trauma, no unilateral leg swelling and no peripheral edema. SKIN: warm, dry, well-perfused, no jaundice, no rash, no telangiectasias or petechia. PSYCH: calm, cooperative, no evidence of psychosis or agitation Related Data Previous Rx's ?Medication ?Instructions ?Recorded hydrocodone 5 mg-acetaminophen 325 1 tab PO Q6H PRN pain #7 tabs 08/04/25 mg tablet amoxicillin 875 mg-potassium 1 tab PO Q12H #14 tabs 08/30/24 clavulanate 125 mg tablet Allergies Allergy/AdvReac Type Severity Reaction Status Date / Time No Known Allergies Allergy Verified 07/31/24 18:38 Course Course Course Narrative: Presentation consistent with dental pain of tooth # left upper molar . No evidence of Blair's Angina, large abscess pocket, requirement for emergent extraction, or other complications. Provided prescription for augmentin. Patient informed to follow up with local dentist. Return to ER if pain uncontrolled, abscess that drains purulent fluid, high fevers, trouble swallowing, or other concerns. First dose given prior to discharge.? Plan:? Discharge from ED? F/U with local dentist Informed to return to ED if has new or worsening symptoms. Expressed understanding of and agreement with plan and all questions answered. Quality Measures VTE prophylaxis Orders Category Date Time Status Amoxicillin/Pot Clav 875 [Augmentin 875] Med 08/30/24 05:22 Once 1 tab PO X1 ONE Dental / Oral Patient data External records reviewed:: None Clinical information provided by:: patient Social determinants that could affect healthcare access:: none Patient has the following chronic illnesses:: as stated in chart How is presenting disease/condition affected by chronic disease/condition?: no chronic disease Evaluation data The following diagnostics were reviewed and interpreted by me:: other (specify) (n/a ) Lab and/or radiology exams considered but not ordered:: n/a Interpretation Summary: n/a Medications / Prescriptions Medications or Prescriptions considered but not ordered:: n/a Medication administrations:: Medication Administration History Amoxicillin/Clavulanate Potassium (Amoxicillin/Pot Clav 875 Tablet) 1 tab PO X1 ONE Stop: 08/30/24 05:23 as stated in chart Consultations Consultation(s) initiated? (list below): No Diagnosis Most likely diagnosis given after review of the tests above:: dental caries/toothpain Admission Indicated Admission indicated?: not indicated Admission Request Was there a request for admission?: No Disposition Plan Disposition Plan: Discharge Discharge Attestation Discharge Attestation: The patient and all family members were given an opportunity to ask questions and understood the discharge instructions. Discharge instructions specifically effects, indications for sooner follow up or return to the emergency department, and the expected course of current diagnosis. Patient condition: Stable Discharge Plan Plan Patient Disposition: HOME (Self Care) Health Concerns: Follow up with dentist as directed Return to ED if symptoms worsen Prescriptions/Referrals Prescriptions/Med Rec: New amoxicillin-pot clavulanate 875-125 mg tablet 1 tab PO Q12H Qty: 14 0RF No Action hydrocodone-acetaminophen 5-325 mg tablet 1 tab PO Q6H MDD 2 PRN (Reason: pain) Qty: 7 0RF Problem List Clinical Impression: Dental caries Patient/Caregiver Discharge Instructions Education Materials: Understanding Tooth Decay Print Language: Greenlandic Stand Alone Forms: Lanette Award Info., Patient Portal Info Letter
[2024-08-30] MEDS: AMOXICILLIN/POT CLAV 875 TABLET 1 TAB PO (05:51)
== END 2024-08-30 05:54 | disposition home or self-care (01) ==
PROVIDERS: Emergency Provider Emergency Medicine
DX: K02.9 Dental caries, unspecified (principal)
CPT/HCPCS: 99282; A9270